=== PATIENT | female | born 1960 | race Caucasian/White ===

== ENCOUNTER 2016-05-05 22:31 | Emergency (ER) | payer OTHER ==
[~2016-05-05] VITALS: Ht 147.3 cm; Wt 50.9 kg
[~2016-05-05 22:31] MED LIST: ABILIFY15 MG PO; ABILIFY5 MG PO; ASPIR-TRIN325 M1 PO; BLOOD GLUCOSE1 EACH MC; CLARITIN10 M3 PO; Colace PO; Coreg PO; FORTAMET500 MG PO; GABAPENTIN300 MG PO; HABITROL,NICODE21 MG TD; Habitrol,Nicoderm CQ TD; KEFLEX500 MG PO; LANTUS 3 M100 UNITS1 SC; Mag-Ox PO; Medrol Dosepak PO; NAPROSYN500 MG PO; NORCO 5/3251 TABLET PO; Norvasc PO; PERCOCET 5/31 TABLET PO; PLAVIX75 MG PO; PRAVACHOL10 MG PO; PRAVACHOL20 MG PO; PREDNISONE20 MG PO; PROAIR HFA8.5 GM IH; Pravachol PO; Protonix PO; Robitussin, Organidi PO; TEST N'GO1 EAC1 MC; TEST N'GO1 EACH MC; TOPROL XL50 MG PO; TOPROL XL6.25 MG PO; TRAMADOL HCL50 MG PO; TYLENOL REGULA325 MG PO; Theragran PO; ZESTRIL,PRINIV2.5 MG PO; ZOFRAN4 MG PO; Zestril,Prinivil PO
[2016-05-05] MEDS ORDERED: AMLODIPINE BESYL5 MG PO (23:22)
[2016-05-05] MEDS ORDERED: LOPRESSOR50 MG PO (23:22)
[2016-05-05] MEDS ORDERED: PANTOPRAZOLE SO40 MG PO (23:23)
[2016-05-05] MEDS ORDERED: COREG12.5 M1 PO (23:23)
[2016-05-05] MEDS ORDERED: PRAVASTATIN SOD40 MG PO (23:23)
[2016-05-05] MEDS ORDERED: PRINIVIL20 MG PO (23:24)
[2016-05-05] MEDS ORDERED: PLAVIX75 MG PO (23:25)
[2016-05-05] MEDS ORDERED: LANTUS 3 M100 UNITS1 SC (23:26)
[2016-05-05] MEDS ORDERED: DEPAKOTE250 MG PO (23:27)
[2016-05-05] MEDS ORDERED: JANUVIA100 MG PO (23:27)
[2016-05-06 01:53] VITALS: BP 133/86
== END 2016-05-06 01:55 | disposition home or self-care (01) ==
LOC: EME 22:31
DX: R51 Headache (principal); S05.12XA Contusion of eyeball and orbital tissues, left eye, initial encounter; W18.30XA Fall on same level, unspecified, initial encounter; J45.909 Unspecified asthma, uncomplicated; E11.9 Type 2 diabetes mellitus without complications; I10 Essential (primary) hypertension; I25.2 Old myocardial infarction; Z86.73 Personal history of transient ischemic attack (TIA), and cerebral infarction without residual deficits; Z98.61 Coronary angioplasty status; F17.200 Nicotine dependence, unspecified, uncomplicated
CPT/HCPCS: 70450; 70480; 99281; 99284

== ENCOUNTER 2017-07-01 17:47 | Emergency (ER) | payer OTHER ==
[~2017-07-01] VITALS: Ht 147.3 cm; Wt 44.7 kg
[~2017-07-01 17:47] MED LIST changes: +AMLODIPINE BESYL5 MG PO; +COREG12.5 M1 PO; +DEPAKOTE250 MG PO; +JANUVIA100 MG PO; +LOPRESSOR50 MG PO; +PANTOPRAZOLE SO40 MG PO; +PRAVASTATIN SOD40 MG PO; +PRINIVIL20 MG PO
[2017-07-01] MEDS ORDERED: VALIUM2 MG PO (20:54)
[2017-07-01] MEDS ORDERED: ULTRACET1 TABLET PO (20:54)
[2017-07-01 21:07] VITALS: BP 135/95
== END 2017-07-01 21:08 | disposition home or self-care (01) ==
LOC: EME 17:47
DX: S00.83XA Contusion of other part of head, initial encounter (principal); S70.02XA Contusion of left hip, initial encounter; S40.012A Contusion of left shoulder, initial encounter; S16.1XXA Strain of muscle, fascia and tendon at neck level, initial encounter; S00.81XA Abrasion of other part of head, initial encounter; W01.0XXA Fall on same level from slipping, tripping and stumbling without subsequent striking against object, initial encounter; Z79.02 Long term (current) use of antithrombotics/antiplatelets; E11.9 Type 2 diabetes mellitus without complications; Z79.4 Long term (current) use of insulin; I10 Essential (primary) hypertension; Z86.73 Personal history of transient ischemic attack (TIA), and cerebral infarction without residual deficits; I25.2 Old myocardial infarction; F17.200 Nicotine dependence, unspecified, uncomplicated; J45.909 Unspecified asthma, uncomplicated; F31.9 Bipolar disorder, unspecified; Z95.5 Presence of coronary angioplasty implant and graft; Z88.0 Allergy status to penicillin; Z91.040 Latex allergy status
CPT/HCPCS: 70450; 99281; 99284